=== PATIENT | female | born 1985 | race Caucasian/White ===

== ENCOUNTER 2017-09-19 01:12 | Day surgery (SDC) | payer OTHER ==
[2017-09-19 01:42] VITALS: BMI 28.8
[2017-09-19 01:48] VITALS: BP 122/71; TEMP 98.4
--- NOTE | 2017-09-19 06:02 | PRG ---
DATE OF ENCOUNTER: 09/19/2017 OB ER ENCOUNTER PRIMARY FELLED SEAM OPERATOR: Dr. Eugene Oliveira. CHIEF COMPLAINT: Abdominal pains. HISTORY OF PRESENT ILLNESS: Patient is a 32-year-old G5, P2 female with an intrauterine at 38 weeks and a day, who is presenting to Labor and Delivery with worsening abdominal pains. Patient reports that they have become painful since about 11:00 this evening. She was seen earlier in the clinic today and was about 3 cm dilated. Patient reports that she lives more than an hour away. She admits she had been taken the [id number] them consistently, but given the distance from the hospital and having had 2 babies already, she wanted to come in and make sure she was not in labor. She denies any leakage of fluid or vaginal bleeding. She denies any fever or fall, headache, chest pain, shortness of breath, nausea, vomiting. She has had some diarrhea. Denies constipation. Denies any new skin rash, hip problems, knee problems, muscle weakness, vaginal bleeding, leakage of fluid, urinary urgency or frequency. PAST MEDICAL HISTORY: Anemia, anxiety disorder. PAST SURGICAL HISTORY: She has had a LEEP procedure in 2011, breast augmentation. Tonsillectomy as a child. ALLERGIES: SULFA DRUGS. MEDICATIONS: Prozac 20 mg taken daily and vitamins. SOCIAL HISTORY: Denies drug, alcohol, or tobacco use. OB LABORATORY DATA: Blood type is O positive, antibody screen is negative, HIV is nonreactive in the first trimester, RPR is nonreactive in the first trimester. Hepatitis B surface antigen is nonreactive in the first trimester. Antibody screen is negative, HIV nonreactive in the third trimester, and group B Strep negative. REVIEW OF SYSTEMS: Per HPI. PHYSICAL EXAMINATION: VITAL SIGNS: Blood pressure 122/71, heart rate of 109, respiratory rate of 18. GENERAL: She appears to be in no acute distress. She is alert and oriented, cooperative and pleasant to interact with. HEENT: Normocephalic, atraumatic. LUNGS: Clear to auscultation bilaterally. HEART: Regular rate and rhythm. ABDOMEN: Soft and gravid. EXTREMITIES: Nontender, nonedematous. CERVICAL EXAM: 4, 40, and -3 station at 1:45 this morning. heart tracing performed for abdominal pain in . Baseline is noted to be in the 140s with moderate long-term variability, positive accelerations, no decelerations, duration is approximately 40 minutes. Tocometer showing irritability, but no consistent contraction pattern as of yet. ASSESSMENT AND PLAN: Patient is a 32-year-old G5, P2 female with an intrauterine at 38 weeks and a day, who was about an hour away from here. She has no evidence of active labor at this juncture. We will reevaluate the patient in 2-3 hours for cervical change. Fetus has a reactive NST and category 1 tracing. If the patient has a clear cervical change within 3 hours, patient will be admitted for labor management. Of note, Dr. Eugene Oliveira is out of town until 09/23/2017. The [facility] Hospitalist team will be managing her labor should she be admitted. No cervical change after 3-4hours of observation. Pt discharged home with precautions. [place]
== END 2017-09-19 05:50 | disposition home health service (06) ==
LOC: L&D/OP 01:12
PROVIDERS: ATTEND Obstetrics & Gynecology
DX: O47.1 False labor at or after 37 completed weeks of gestation (principal); O99.343 Other mental disorders complicating pregnancy, third trimester; F41.9 Anxiety disorder, unspecified; O99.013 Anemia complicating pregnancy, third trimester; D64.9 Anemia, unspecified; Z3A.38 38 weeks gestation of pregnancy; Z79.899 Other long term (current) drug therapy; Z88.2 Allergy status to sulfonamides
CPT/HCPCS: 99283

== ENCOUNTER 2017-09-25 05:30 | Inpatient (IN) | payer OTHER ==
--- NOTE | 2017-09-24 21:18 | PDOC.LDHP ---
Labor and Delivery H&P Chief complaint: scheduled induction HPI: Pt is a 32yo @ 39 weeks on 09/26/17 who desires elective IOL @ 39 weeks. Current gestational age (weeks): 39 Due date: 10/01/17 Grav: 5 Para: 2 OB History Details: SAB x 2, x 2 Current complications: none Abnormal US findings: No Past Medical History: anxiety Current medications: pre- vitamins Previous surgical history: other (LEEP, breast aug) Allergies/Adverse Reactions: Allergies Allergy/AdvReac Type Severity Reaction Status Date / Time sulfamethoxazole Allergy Intermediate Rash Verified 04/17/13 06:32 [From Bactrim] trimethoprim [From Bactrim] Allergy Intermediate Rash Verified 04/17/13 06:32 Social history: none - Physical Exam Vital signs reviewed and normal: yes General: NAD, resting Heart: RRR Lungs: CTAB Abdomen: gravid Extremeties: trace edema FHT: category 1 - Vaginal Exam cm dilated: 4 Effacement: 90% Station: -2 - OB Labs Blood type: O RH: positive Antibody Screen: negative HIV: negative RPR: negative HEPSAg: negative 1 hour GCT: negative GBS: negative Urine drug screen: not done Rubella: immune - Assessment L&D Assessment: elective induction at term - Plan Plan: admit to L&D, cervical ripening, labor augmentation if indicated, informed consent obtained, anesthesia consult for pain management -: A?P: @ 39 weeks desires elective IOL, AROM on admit exam with clear fluid, FHT reassuring, epidural requested.
[2017-09-25 06:17] VITALS: BMI 29.6
[2017-09-25] MEDS: Lactated Ringer's 1,000 ML IV SCH ×4 (06:40→13:53)
[2017-09-25] MEDS ORDERED: Ondansetron PF 4 MG/2 ML Vial IVP PRN ×3 (06:47→16:49)
[2017-09-25] MEDS ORDERED: NS / Oxytocin 40 units/1000ml 1,000 ML IV PRN (06:47)
[2017-09-25] MEDS ORDERED: Promethazine HCl 25 MG/ML VIAL IM PRN ×2 (06:47→09:20)
[2017-09-25] MEDS ORDERED: Butorphanol Tartrate 1 MG/ML VIAL SLOW IVP PRN (06:47)
[2017-09-25] MEDS ORDERED: NS w/ Oxytocin 10 units 500 ML IV SCH ×2 (06:47)
[2017-09-25] MEDS ORDERED: Zolpidem Tartrate 5 MG TAB PO PRN (06:47)
[2017-09-25] MEDS ORDERED: Lidocaine 1% (PF) 30 ML VIAL SC PRN (06:47)
[2017-09-25] MEDS ORDERED: Ibuprofen 800 MG TAB PO PRN (06:47)
[2017-09-25] MEDS ORDERED: Acetaminophen/Codeine 30-300mg Tablet PO PRN ×2 (06:47)
[2017-09-25] MEDS ORDERED: Bupivacaine 0.5% 20 ML, fentaNYL Citrate/PF 400 MCG in Sodium Chloride 0.9% 72 ML EPIDURAL SCH (07:15)
[2017-09-25] MEDS ORDERED: DISCONTINUE ALL PREVIOUS NARCOTICS FS SCH (07:15)
[2017-09-25 07:33] LABS: Mean Corpuscular HGB CONC 34.1 g/dL (32.0-36.0); Mean Corpuscular Hemoglobin 27.3 pg (27.0-31.0); Mean Corpuscular Volume 80.1 fL (78.0-98.0); Mean Platelet Volume 8.2 fL (7.4-10.4); Platelet Count 194 thou/uL (130-400); RBC Distribution Width 12.8 % (11.5-14.5); Red Blood Cell (RBC) Count 3.68 mill/uL (4.20-5.40); White Blood Cell (WBC) Count 8.5 thou/uL (4.8-10.8)
[2017-09-25 08:05] LABS: HBSAg Index 0.19 S/CO (0-0.99); Hep B Surf Ag Non-Reactive S/CO (NonReactive)
[2017-09-25] MEDS ORDERED: Naloxone HCl 0.4 mg/ml Vial IVP PRN ×2 (09:20)
[2017-09-25] MEDS ORDERED: ePHEDrine/0.9% NaCl/PF SYRINGE 50 mg/10 ml SLOW IVP PRN (09:20)
[2017-09-25] MEDS ORDERED: Lactated Ringer's 500 ML IV PRN (09:20)
[2017-09-25] MEDS ORDERED: Acetaminophen 325 MG TAB PO PRN (09:20)
[2017-09-25] MEDS ORDERED: Eucerin (Mineral Oil/Petrolatum,White) 30 gm Jar TOP PRN (09:20)
[2017-09-25] MEDS ORDERED: diphenhydrAMINE 50 MG/ML VIAL IVP PRN (09:20)
[2017-09-25] MEDS ORDERED: fentaNYL Citrate/PF 400 MCG, Bupivacaine 0.5% 20 ML in Sodium Chloride 0.9% 72 ML EPIDURAL SCH (09:30)
[2017-09-25] MEDS ORDERED: Communication Order-Pharmacy FS SCH (09:30)
[2017-09-25] MEDS ORDERED: ePHEDrine/0.9% NaCl/PF SYRINGE 50 mg/10 ml ONE (10:00)
--- NOTE | 2017-09-25 13:11 | PDOC.LDPN ---
Labor & Delivery Progress Note - Subjective Subjective: comfortable - Objective Vital signs reviewed and normal: yes General: resting Dilation: 6 Effacement: 75% Station: -1 FHT: category 1 [place] contractions every: 2-3 AROM: clear fluid - Assessment (1) 39 weeks gestation of Code(s): Z3A.39 - 39 WEEKS GESTATION OF Current Visit: Yes Status : Acute Plan: continue plan of care, labor augmentation -: Pit at 6mu/min, will increase per protocol, FHT reassuring.
--- NOTE | 2017-09-25 16:23 | PDOC.OPDEL ---
OB Operative/Delivery Note Delivery Dr/Surgeon: Tee Pre-Delivery Diagnosis: elective induction Procedure/Post Delivery Dx: spontaneous vaginal delivery Weeks gestation: 39 Anesthesia: epidural - Findings A Sex: female - Additional Findings/Plan Placenta delivered: spontaneous Repaired Obstetrical Laceration: none Estimated blood loss: 100ml, QBL pending Compilations/Other Findings: loose nuchal x 1, reduced at perineum Post delivery plan: routine recovery
[2017-09-25] MEDS ORDERED: Preparation H Ointment 28 GM TUBE PR PRN (16:49)
[2017-09-25] MEDS ORDERED: Lanolin Ointment 7 GM TUBE TOP PRN (16:49)
[2017-09-25] MEDS ORDERED: diphenhydrAMINE 25 MG CAP PO PRN (16:49)
[2017-09-25] MEDS ORDERED: Bisacodyl 10 MG SUPP PR PRN (16:49)
[2017-09-25] MEDS ORDERED: Benzocaine/Menthol 20-0.5% 60 ML CAN TOP PRN (16:49)
[2017-09-25] MEDS ORDERED: Adacel (T-DAP) 0.5 ML VIAL IM ONE (16:49)
[2017-09-25] MEDS ORDERED: traMADol HCl 50 MG TAB PO PRN (16:49)
[2017-09-25] MEDS ORDERED: Milk Of Magnesia 30 ML UDCUP PO PRN (16:49)
[2017-09-25] MEDS ORDERED: NS / Oxytocin 40 units/1000ml 1,000 ML IV SCH (16:49)
[2017-09-25] MEDS: Docusate Calcium (SURFAK) 240 MG CAP PO SCH (20:44)
[2017-09-25] MEDS: Ibuprofen 800 MG TAB PO SCH (20:44)
[2017-09-25] MEDS: Acetaminophen/Codeine 30-300mg Tablet PO PRN (20:49)
[2017-09-25] MEDS: Ferrous Sulfate 325 MG TAB PO SCH (20:50)
[2017-09-26] MEDS: Ibuprofen 800 MG TAB PO SCH ×2 (03:00→10:39)
[2017-09-26] MEDS: Acetaminophen/Codeine 30-300mg Tablet PO PRN ×3 (04:49→14:29)
[2017-09-26 06:07] LABS: Hemoglobin 9.8 g/dL (12.0-16.0); Mean Corpuscular HGB CONC 32.9 g/dL (32.0-36.0); Mean Corpuscular Hemoglobin 26.7 pg (27.0-31.0); Mean Corpuscular Volume 80.9 fL (78.0-98.0); Platelet Count 177 thou/uL (130-400); RBC Distribution Width 12.8 % (11.5-14.5); Red Blood Cell (RBC) Count 3.67 mill/uL (4.20-5.40); White Blood Cell (WBC) Count 11.1 thou/uL (4.8-10.8)
[2017-09-26] MEDS ORDERED: Prenatal Vitamin 1 TAB PO SCH (09:00)
[2017-09-26] MEDS: Ferrous Sulfate 325 MG TAB PO SCH (09:15)
[2017-09-26] MEDS: Docusate Calcium (SURFAK) 240 MG CAP PO SCH (09:16)
--- NOTE | 2017-09-26 09:36 | PDOC.PP ---
Post Progress Note Post Day #: 1 Subjective: nursing well, normal lochia, no pain, no concerns PO intake tolerated: yes Flatus: yes Ambulation: yes Vital Signs (12 hours) Temp Pulse Resp BP 09/26/17 08:00 97.8 F 69 20 102/63 09/26/17 03:05 97.7 F 83 16 104/62 09/26/17 00:12 98.3 F 73 16 09/25/17 23:05 98.3 F 73 16 110/54 L 09/25/17 22:00 64 16 105/64 Weight Weight 189 lb - Physical Examination General: NAD Respiratory: non-labored breathing Abdominal: lochia (normal) Fundus firm & at: below umb Extremities: negative homans (B) Skin: no rash Neurological: no gross focal deficits Psychiatric: A&Ox3, normal affect Result Diagrams: 09/26/17 05:26 Additional Labs: Post Labs Blood Type O POSITIVE 09/25/17 07:25 Hep Bs Antigen Non-Reactive S/CO (NonReactive) 09/25/17 07:25 (1) 39 weeks gestation of Code(s): Z3A.39 - 39 WEEKS GESTATION OF Status: Acute (2) Vaginal delivery Code(s): O80 - ENCOUNTER FOR FULL-TERM UNCOMPLICATED DELIVERY Status: Acute (3) Anemia Code(s): D64.9 - ANEMIA, UNSPECIFIED Status: Acute - Assessment/Plan PPD1 doing well, plan for possible DC today, iron and motrin at discharge discussed.
[2017-09-26 11:56] VITALS: BP 117/61; TEMP 98.5
== END 2017-09-26 17:35 | disposition home or self-care (01) | DRG 775 ==
LOC: L&D 05:43 → 3SW 19:45
PROVIDERS: ADMIT Obstetrics & Gynecology; ATTEND Obstetrics & Gynecology
PROC: 3E033VJ Introduction of Other Hormone into Peripheral Vein, Percutaneous Approach (ICD-10-PCS; principal; 2017-09-25)
PROC: 4A0HXCZ Measurement of Products of Conception, Cardiac Rate, External Approach (ICD-10-PCS; 2017-09-25)
PROC: 10907ZC Drainage of Amniotic Fluid, Therapeutic from Products of Conception, Via Natural or Artificial Opening (ICD-10-PCS; 2017-09-25)
DX: O69.81X0 Labor and delivery complicated by cord around neck, without compression, not applicable or unspecified (principal); Z37.0 Single live birth; O99.02 Anemia complicating childbirth; D64.9 Anemia, unspecified; Z3A.39 39 weeks gestation of pregnancy
CPT/HCPCS: 36415; 51702; 85027; 86850; 86900; 86901; 87340; J2001; J3010; J3490; J7050